=== PATIENT | female | born 1940 ===

== ENCOUNTER 2017-02-04 00:44 | Emergency (ER) | payer MEDICARE, OTHER ==
[2017-02-04 00:44] VITALS: BMI 27.1
--- NOTE | 2017-02-04 01:29 | C.PDOC ---
History Of Present Illness <Taina Curryagatha Quinones - Last Filed: 02/04/17 02:06> <Lo Serrano - Last Filed: 02/04/17 04:37> 76 yo female w/PMHx of HTN, lowerback pain, OA, come in for evaluation of intermittent headache and B/L legs tingling for past 3 days. Today, developed cough with clear sputum. Pt admits, was re-checking BP at home " and it was high ". Pt admits, compliant with her medication, takes Benicar 40 mg daily, last dose today AM. Otherwise, pt denies fever, chills, denies worse headache of life, visual changes, focal deficits, CP, SOB, dyspnea, diaphoresis, palpitation , abd. pain, N/V, back pain, saddle anesthesia, UTI sx. Ambulate to Ed for evaluation, not in any apparent distress. (Lo Serrano) <CurryArley Quinones - Last Filed: 02/04/17 02:06> <Lo Serrano - Last Filed: 02/04/17 04:37> Time Seen by Provider: 02/04/17 01:19 Chief Complaint (Nursing): Headache Past Medical History - Medical History PMH: Arthritis (MILD ), HTN, Hypercholesterolemia, Hypothyroidism, Kidney Stones , Peripheral Edema, Chronic Kidney Disease Surgical History: Endoscopy Family History: States: Unknown Family Hx - Social History Hx Alcohol Use: No Hx Substance Use: No - Immunization History Hx Tetanus Toxoid Vaccination: No Hx Influenza Vaccination: No Hx Pneumococcal Vaccination: Yes <Lo Serrano - Last Filed: 02/04/17 04:37> Vital Signs: Last Vital Signs Temp 97.6 F 02/04/17 03:34 Pulse 69 02/04/17 03:34 Resp 17 02/04/17 03:34 BP 147/83 02/04/17 03:34 Pulse Ox 100 02/04/17 03:34 - [facility] Procedures ENDOSC POLYPECTOMY OF LG INTEST (04/30/14) Physical Exam - Physical Exam Appears: Well, Non-toxic, No Acute Distress Skin: Normal Color, Warm, Dry Head: Normacephalic Eye(s): bilateral: PERRL Ear(s): Bilateral: Normal Nose: No Discharge Oral Mucosa: Moist, No Drooling Throat: No Erythema, No Exudate, No Drooling Neck: Trachea Midline, Supple Cardiovascular: Rhythm Regular, No Friction Rub, No Murmur, No JVD, Other ((-) carotid bruits) Respiratory: No Decreased Breath Sounds, No Accessory Muscle Use, No Stridor, No Wheezing Gastrointestinal/Abdominal: Normal Exam, Soft, No Tenderness, No Organomegaly, No Distention, No Guarding Back: No CVA Tenderness Extremity: Normal ROM, No Pedal Edema, No Calf Tenderness (B/L), No Deformity, No Swelling Neurological/Psych: Oriented x3, Normal Speech, Normal Motor, Normal Sensation, Normal Reflexes <Lo Serrano - Last Filed: 02/04/17 04:37> ED Course And Treatment - Laboratory Results Result Diagrams: 02/04/17 01:51 ECG: Interpreted By Me, Viewed By Nm ECG Rhythm: Sinus Bradycardia, Nonspecific Changes ECG Interpretation: No Acute Changes, Abnormal Interpretation Of ECG: Sinus bradycardia, non-spc st-t changes, abnormal tracinhs. Rate From EC Pulse Ox Interpretation: Normal <Arley Curry R - Last Filed: 02/04/17 02:06> - Laboratory Results Result Diagrams: 02/04/17 01:51 02/04/17 01:51 ECG Interpretation: No Changes From Prior (compare to one from 2014 and appears similar.) O2 Sat by Pulse Oximetry: 99 - Radiology CXR: Interpreted by Me, Viewed By Nm CXR Interpretation: Yes: No Acute Disease - CT Scan/US CT head w/o contrast Other Rad Studies (CT/US): Radiology Report Reviewed CT/US Interpretation: EXAM: CT Head Without Intravenous Contrast. CLINICAL HISTORY: 76 years old, female; Pain; Headache; Other: HTN; Additional info: Headache,. HTN. TECHNIQUE: Axial computed tomography images of the head/brain without intravenous contrast. All CT scans at this facility use one or more dose reduction techniques, viz.: automated exposure. control; ma/kV adjustment per patient size (including targeted exams where dose is matched to. indication ; i.e. head); or iterative reconstruction technique. Coronal and sagittal reformatted images. were created and reviewed. COMPARISON: MR - BRAIN W WO CONTRAST 03/21/2015 2:12:30 PM. FINDINGS: Brain: Mild cerebral and cerebellar atrophy. No hemorrhage. No significant white matter disease. No edema. Ventricles: Unremarkable. No ventriculomegaly. Bones/joints: Unremarkable. No acute fracture. Soft tissues: Unremarkable. Vasculature: Intracranial arterial calcifications. Sinuses: Unremarkable as visualized. No acute sinusitis. Mastoid air cells: Unremarkable as visualized. No mastoid effusion. IMPRESSION: Mild cerebral and cerebellar atrophy. Thank you for allowing us to participate in the care of your patient. Dictated and Authenticated by: Seamus Land MD. 02/04/2017 2:37 AM Eastern Time ([place] & [place]) Progress Note: On re-evaluation, pt is AAO#3, not in any apparent distress. VItals repeat and appears improved BP. PulseOx 99% RA. Head: AT/NC. ENT: no acute changes. Neck: Supple, (-) JVD, (-) carotid bruits. Lungs: CTA B/L, BS equal B/L. CVS: (+)S1S2, reg, (-) murmur. Pt reamined sinus cesar on youth nutritional monitor, while in ED. ABd: Benign, (-) guarding, (-) rebound. Neuorlogicaly intact. Diagnotics, imaging review and appears without acute abnormalities. Case discussed with ED attending and discharge recommend with outpt f/u at present time. Results review and discussed with pt and family, understand. Pt has clinical findings c/w HTN, peripheral paresthesia r/o lumbar radiculopathy. Pt advised. ref. to F/u with PMD in 1-2 days for re-evaluation. <Lo Serrano - Last Filed: 02/04/17 04:37> Disposition <Arley Curry - Last Filed: 02/04/17 02:06> Counseled Patient/Family Regarding: Studies Performed, Diagnosis, Need For Followup, Rx Given - Disposition Disposition Time: 03:21 <Lo Serrano - Last Filed: 02/04/17 04:37> - Disposition Referrals: Marcelo Moreno MD [Staff Provider] - Disposition: HOME/ ROUTINE Condition: STABLE Additional Instructions: Light duty, avoid activity for 1 week, no heavy lifting/carrying, bending forward for 1 week take pain medication as need Follow up with PMD in 1-2 days for re-evaluation. Return to ED if any worsening or new changes. Prescriptions: traMADol [Ultram] 50 mg PO TID #7 tab Instructions: Tramadol (By mouth), Paresthesia (ED), Hypertension (ED) Forms: [employer] ([place]an) Print Language: KOREAN - Clinical Impression Clinical Impression: Hypertension, Paresthesia of both feet
[2017-02-04 01:56] LABS: BASO % 0.7 % (0.0-2.0); EOS % 0.7 % (0.0-4.0); HEMATOCRIT 36.3 % (34.0-47.0); LYMPH # 1.2 K/uL (1.0-4.3); MEAN CELL VOLUME 92.7 fL (81.0-99.0); MEAN CORPUSCULAR HEMOGLOBIN 30.8 pg (27.0-31.0); MEAN CORPUSCULAR HGB CONC 33.2 g/dL (33.0-37.0); MEAN PLATELET VOLUME 7.8 fL (7.2-11.7); MONO # 0.5 K/uL (0.0-0.8); MONO % 6.5 % (0.0-10.0); RED CELL DISTRIBUTION WIDTH 12.9 % (11.5-14.5); WHITE BLOOD COUNT 6.9 K/uL (4.8-10.8)
[2017-02-04 02:07] LABS: CHLORIDE 103 mmol/L (98-107); SODIUM 137 mmol/L (132-148)
[2017-02-04 02:09] LABS: GFR AFRICAN-AMERICAN > 60
[2017-02-04 02:10] LABS: ALB/GLOB RATIO 1.3 (1.0-2.1); ALKALINE PHOSPHATASE 62 U/L (38-126); ALT/SGPT 43 U/L (9-52); AST/SGOT 31 U/L (14-36); BILIRUBIN,TOTAL 0.6 mg/dL (0.2-1.3); BLOOD UREA NITROGEN 13 mg/dL (7-17); CARBON DIOXIDE 24 mmol/L (22-30); GLUCOSE,RANDOM 107 mg/dL (65-105); TOTAL PROTEIN 7.3 g/dL (6.3-8.3)
[2017-02-04 02:11] LABS: CALCIUM 8.5 mg/dl (8.6-10.4)
[2017-02-04 02:16] LABS: RBC URINE 1 /hpf (0-3); URINE BACTERIA RARE (<OCC); URINE BILIRUBIN NEGATIVE (NEGATIVE); URINE BLOOD NEGATIVE (NEGATIVE); URINE COLOR Yellow (YELLOW); URINE GLUCOSE (UA) NORMAL (Normal); URINE KETONE NEGATIVE (NEGATIVE); URINE LEUKOCYTE ESTERASE NEG Leu/uL (Negative); URINE PROTEIN NEGATIVE (NEGATIVE); URINE UROBILINOGEN NORMAL mg/dL (0.2-1.0); WBC URINE < 1 /hpf (0-5)
[2017-02-04 02:26] VITALS: RESP 17
[2017-02-04 02:41] LABS: THYROID STIMULATING HORMONE 1.46 mIU/L (0.46-4.68)
[2017-02-04 03:38] VITALS: BP 147/83; PULSE 69; TEMP 97.6
[2017-02-04 04:38] VITALS: O2SAT 99
--- NOTE | 2017-02-04 12:00 | RAD ---
HISTORY: SOB COMPARISON: Chest 07/24/2016 TECHNIQUE: Chest PA and lateral FINDINGS: LUNGS: No active pulmonary disease. PLEURA: No significant pleural effusion identified. No pneumothorax apparent. CARDIOVASCULAR: Normal. OSSEOUS STRUCTURES: No significant abnormalities. VISUALIZED UPPER ABDOMEN: Normal. OTHER FINDINGS: None. IMPRESSION: No acute cardiopulmonary disease or significant interval change identified.
--- NOTE | 2017-02-04 13:58 | CT ---
PROCEDURE: CT HEAD WITHOUT CONTRAST. HISTORY: headache, HTN COMPARISON: Head CT 03/21/2015. TECHNIQUE: Axial computed tomography images were obtained through the head/brain without intravenous contrast. Radiation dose: Total exam DLP = 691 mGy-cm. This CT exam was performed using one or more of the following dose reduction techniques: Automated exposure control, adjustment of the mA and/or kV according to patient size, and/or use of iterative reconstruction technique. FINDINGS: HEMORRHAGE: No intracranial hemorrhage. BRAIN: Diffuse cerebral atrophy is reiterated. There is no mass effect or suspicious extra-axial fluid collection appreciated. Midline brain anatomy remains unremarkable as well as the posterior fossa contents. VENTRICLES: Unremarkable. No hydrocephalus. CALVARIUM: Unremarkable. PARANASAL SINUSES: Unremarkable as visualized. No significant inflammatory changes. MASTOID AIR CELLS: Unremarkable as visualized. No inflammatory changes. OTHER FINDINGS: None. IMPRESSION: No acute intracranial findings by standard CT criteria. No significant interval change compared to prior CT 03/21/2015 including mild diffuse cerebral atrophy.
--- NOTE | 2017-02-17 20:39 | CARD ---
APPROVED REPORT EKG Measurement Heart [id number] <Conclusion> Sinus bradycardia Nonspecific ST and T wave abnormality Abnormal ECG
== END 2017-02-04 03:38 | disposition home or self-care (01) ==
LOC: C.ER 00:44
DX: I10 Essential (primary) hypertension (principal); R20.9 Unspecified disturbances of skin sensation
CPT/HCPCS: 70450; 71020; 80053; 81001; 83880; 84443; 84484; 85025; 85610; 85730; 96374; 99285; J1885